=== PATIENT | male | born 1985 | race American Indian/Alaskan Native ===

== ENCOUNTER 2017-06-20 03:13 | Emergency (ER) | payer SELFPAY ==
--- NOTE | 2017-06-20 03:50 | Cat Scan Report ---
FINAL REPORT EXAM: CT HEAD/BRAIN WO CON HISTORY: seizure COMPARISON: None available. TECHNIQUE: Axial images obtained skull base through vertex. FINDINGS: No acute intracranial hemorrhage, midline shift or pathologic extra axial fluid collection. Ventricles and cisterns are normal in size and configuration for the patient's age. Blunt-white differentiation preserved. Calvarium grossly intact. Orbits are grossly unremarkable. Mild soft tissue swelling along the left frontal calvarium. Visualized para-nasal sinuses and mastoid air cells are clear. IMPRESSION: No grossly acute intracranial abnormality. Mild soft tissue swelling along the left frontal calvarium.
--- NOTE | 2017-06-20 03:51 | Cat Scan Report ---
FINAL REPORT EXAM: CT CERVICAL SPINE WO CON HISTORY: seizure COMPARISON: None available. TECHNIQUE: Axial images obtained through the cervical spine. Additional sagittal and coronal reformatted images were obtained. FINDINGS: Normal lordotic curvature of the cervical spine. Cervical vertebral body heights are preserved. No acute fracture or traumatic subluxation. Odontoid process, articular pillars and occipital condyles are intact. No significant bony encroachment upon the canal or foramen. IMPRESSION: No acute fracture or subluxation of the cervical spine.
[2017-06-20 03:54] LABS: Basophils % (Auto) 0.6 % (0.0-1.8); Eosinophils % (Auto) 0.4 % (0.0-4.3); Hematocrit 44.4 % (35.5-45.6); Hemoglobin 15.3 gm/dl (11.8-15.2); Mean Corpuscular HGB Conc 34 % (32-34); Mean Corpuscular Hemoglobin 32 pg (28-32); Mean Corpuscular Volume 93 fl (84-94); Platelet Count 220 K/mm3 (140-440); Red Blood Count 4.79 M/mm3 (3.65-5.03); Red Cell Distribution Width 13.3 % (13.2-15.2); White Blood Count 12.4 K/mm3 (4.5-11.0)
[2017-06-20] MEDS ORDERED: TORADOL IV ONE (04:05)
[2017-06-20] MEDS ORDERED: BENADRYL IV ONE (04:05)
[2017-06-20] MEDS ORDERED: REGLAN IV ONE (04:05)
[2017-06-20 04:16] LABS: Alanine Aminotransferase 18 units/L (7-56); Albumin 4.4 g/dL (3.9-5); Albumin/Globulin Ratio 1.8 %; Alkaline Phosphatase 78 units/L (35-129); Anion Gap 23 mmol/L; Blood Urea Nitrogen 17 mg/dL (9-20); Calcium 9.1 mg/dL (8.4-10.2); Carbon Dioxide 22 mmol/L (22-30); Chloride 101.1 mmol/L (98-107); Glucose 91 mg/dL (75-100); Potassium 3.9 mmol/L (3.6-5.0); Sodium 142 mmol/L (137-145); Total Protein 6.8 g/dL (6.3-8.2)
--- NOTE | 2017-06-20 06:26 | Emergency Department Report ---
HPI - General Chief Complaint: Seizure Time Seen by Provider: 06/20/17 06:00 - HPI HPI: This is a 32 year-old male presents to the emergency department after having some seizure-like activity was witnessed by family earlier today. 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 However the patient has also previously been on antiepileptic medication including Keppra and Dilantin and his , who is bedside, says that this makes his seizures worse and more frequent. Is not on any current medication. Today the patient did hit his head during the convulsions or seizure-like activity and has a small bump on the forehead. He currently is awake and appears alert and does not have any current complaints other than feeling fatigued. The patient has unequal pupils but his right eye is "always dilated" since a previous eye injury. No recent travel or sick contacts at home. ED Past Medical Hx - Past Medical History Previous Medical History?: Yes Hx Seizures: Yes - Surgical History Past Surgical History?: No - Social History Smoking Status: Current Every Day Smoker Substance Use Type: Alcohol ED Review of Systems ROS: Stated complaint: CONVULSIONS Other details as noted in HPI Comment: All other systems reviewed and negative Constitutional: denies: chills, fever Eyes: denies: eye pain, eye discharge, vision change ENT: denies: ear pain, throat pain Respiratory: denies: cough, shortness of breath, wheezing Cardiovascular: denies: chest pain, palpitations Gastrointestinal: denies: abdominal pain, nausea, diarrhea Genitourinary: denies: urgency, dysuria Musculoskeletal: denies: back pain, joint swelling, arthralgia Skin: denies: rash, lesions Neurological: headache, other (seizure). denies: weakness, numbness, paresthesias Physical Exam - Physical Exam Vital Signs: Vital Signs 06/20/17 06/20/17 06/20/17 03:13 03:39 03:45 Temperature 98.5 F Pulse Rate 73 82 76 Respiratory 15 7 L Rate Blood Pressure 115/68 123/73 Blood Pressure 115/68 [Right] O2 Sat by Pulse 98 Oximetry Physical Exam: GENERAL: The patient is well-developed well-nourished. HENT: Normocephalic. Patient has moist mucous membranes. EYES: Extraocular motions are intact. Right pupil is dilated and not very responsive to light but this is chronic. Left pupil responds to light. NECK: Supple. Trachea is midline. CHEST/LUNGS: Clear to auscultation. There is no respiratory distress noted. HEART/CARDIOVASCULAR: Regular. There is no tachycardia. There is no gallop rub or murmur. ABDOMEN: Abdomen is soft, nontender. Patient has normal bowel sounds. There is no abdominal distention. SKIN: Skin is warm and dry. There is a small non-expanding hematoma to the lower middle forehead between the eyes. NEURO: The patient is awake, alert. The patient is cooperative. The patient has no focal neurologic deficits. The patient has normal speech. Cranial nerves II through XII grossly intact. MUSCULOSKELETAL: There is no tenderness or deformity. There is no limitation range of motion. There is no evidence of acute injury. ED Course Vital Signs 06/20/17 06/20/17 06/20/17 03:13 03:39 03:45 Temperature 98.5 F Pulse Rate 73 82 76 Respiratory 15 7 L Rate Blood Pressure 115/68 123/73 Blood Pressure 115/68 [Right] O2 Sat by Pulse 98 Oximetry ED Medical Decision Making - Lab Data Result diagrams: 06/20/17 03:43 06/20/17 03:43 - EKG Data -: EKG Interpreted by Fl EKG shows normal: sinus rhythm (with sinus arrhythmia), axis (right axis deviation), intervals, QRS complexes, ST-T waves Rate: bradycardia (57 bpm) - EKG Data When compared to previous EKG there are: previous EKG unavailable Interpretation: other (sinus arrhythmia with mild bradycardia at 57 bpm, right axis deviation) - Radiology Data Radiology results: report reviewed CT of the head does not show any acute intracranial process including no ischemia, shift, mass, bleeding or skull fracture. CT of the cervical spine does not show any fracture, subluxation or any acute process. - Medical Decision Making 32-year-old male presents after a witnessed seizure-like activity earlier today. He has been evaluated in the emergency department for about 5 hours and there is been no further seizure-like activity. There is not appear to be any prolonged postictal state. The patient is awake and alert. Due to his seizure and head trauma, patient had a CT of the head and cervical spine. There is no sign of any bleed, shift, mass, fracture, subluxation or any acute processes. His labs are unremarkable and do not show any etiology of his symptoms. There is no signs of rhabdomyolysis. He has normal thyroid function. No signs of infection. His vital signs and stable throughout his ED course. The patient does have some history of a seizure disorder but it is unknown whether it is epilepsy versus pseudoseizures versus other. Apparently the patient has poor reactions to any antiepileptics. For this reason he was not given any antiepileptic medication within the emergency department. The patient was reevaluated multiple times for multiple hours and says he is feeling improved and they are asking for discharge home. He was given referrals for 3 different neurologists and encouraged to follow up with a neurologist as well as his primary care physician. He will return to the ER for any worsening of his symptoms or any acute distress. - Differential Diagnosis epilepsy, pseudoseizures, brain bleed, concussion Critical Care Time: No Critical care attestation.: If time is entered above; I have spent that time in minutes in the direct care of this critically ill patient, excluding procedure time. ED Disposition Clinical Impression: Seizure, History of seizure disorder Disposition: DC-01 TO HOME OR SELFCARE Is pt being admited?: No Condition: Stable Instructions: Recurrent Seizures Adult (ED) Additional Instructions: Please follow-up with your primary care physician in the next few days. I have given a referral for multiple different neurologists and I do recommend that you establish care and follow-up with a neurologist as soon as possible for further evaluation of your seizures versus pseudoseizures. Return to the emergency department immediately with any further seizure-like activity, worsening of your symptoms, or any acute distress. Referrals: FABIOLA VERNON MD [Primary Care Provider] - 3-5 Days CRISTINA RODRIGUEZ MD [Staff Physician] - 3-5 Days BECKY DUGGAN MD [Staff Physician] - 3-5 Days ADRIA MATA MD [Staff Physician] - 3-5 Days Time of Disposition: 09:14
[2017-06-20 07:41] LABS: Urine Drugs of Abuse Note Disclamer
[2017-06-20 08:17] LABS: Bilirubin,Urine NEG (Negative); Blood,Urine NEG (Negative); Ketones,Urine TR mg/dL (Negative); Leukocyte Esterase,Urine NEG (Negative); Mucus,Urine FEW /HPF; Nitrite,Urine NEG (Negative); Protein,Urine <15 mg/dL mg/dL (Negative); Urobilinogen,Urine < 2.0 mg/dL (<2.0)
[2017-06-20 09:13] VITALS: BP 105/48
== END 2017-06-20 09:29 | disposition home or self-care (01) ==
LOC: ED 03:13
DX: R56.9 Unspecified convulsions (principal); F17.200 Nicotine dependence, unspecified, uncomplicated
CPT/HCPCS: 36415; 70450; 72125; 80053; 80307; 81001; 82550; 84443; 85025; 93005; 93010; 96374; 96375; 99284; J1200; J1885; J2765